=== PATIENT | male | born 1960 | race Caucasian/White ===

== ENCOUNTER 2022-12-18 10:20 | Outpatient (CLI) | payer OTHER, SELFPAY | END 2022-12-18 10:21 | disposition home or self-care (01) | PROVIDERS: PCP Family Medicine; Visit Provider Family Medicine | DX: R00.2 Palpitations (principal) | CPT/HCPCS: 80048; 84443 ==

== ENCOUNTER 2024-03-03 08:42 | Outpatient (CLI) | payer BC, SELFPAY | END 2024-03-03 08:43 | disposition home or self-care (01) | PROVIDERS: PCP Family Medicine; Visit Provider Family Medicine | DX: I10 Essential (primary) hypertension (principal); Z12.5 Encounter for screening for malignant neoplasm of prostate | CPT/HCPCS: 80048; G0103 ==

== ENCOUNTER 2024-09-25 13:31 | Outpatient (CLI) | payer BC, SELFPAY ==
[2024-09-25 13:59] LABS: Creatinine* 0.8 mg/dL (0.5-1.5); Estimated Glomerular Filt Rate 99 ml/min
--- NOTE | 2024-09-25 14:00 | CRLHL7_ITS ---
For Patients: As a result of the Century Cures Act, medical imaging exams and procedure reports are released immediately into your electronic medical record. You may view this report before your referring provider. If you have questions, please contact your health care provider. INDICATION: Abnormal chest x-ray with pleural thickening. TECHNIQUE: CT chest with 75 cc Omnipaque 370 IV contrast. Multiplanar reformats with axial MIP reconstructions. COMPARISON: Chest x-ray 03/03/2024. FINDINGS: Lungs and pleura/mediastinum: Spiculated left hilar mass measures up to 4.3 x 3.3 x 4.0 cm (series 2, image 55; series 4, image 51) with likely extension within the pulmonary veins on the left and encasement of the left upper lobe and proximal left lower lobe bronchial tree. Prominent mediastinal lymph nodes with largest in the lower paratracheal region measuring up to 1.1 cm in short axis (series 2 image 45). There is centrilobular emphysema. Biapical pleural parenchymal scarring is evident. No definite pulmonary nodule. No pleural effusion or pneumothorax. Heart and vasculature: No cardiomegaly or pericardial effusion. There are atherosclerotic calcifications of the aorta. No thoracic aortic aneurysm. Main pulmonary artery is normal in caliber. No obvious pulmonary embolism on this nondedicated exam. Chest wall: No chest wall mass or fluid collection. Upper abdomen: No acute abnormality. Bones: No acute abnormality. IMPRESSION: 1. Spiculated left hilar mass measuring up to 4.3 cm highly concerning for malignancy with pulmonary venous extension and encasement of portions of the bronchial tree within the left upper and lower lobes. Further characterization with histopathologic analysis and PET/CT recommended. 2. Mediastinal lymphadenopathy. 3. Centrilobular pulmonary emphysema. Please note that all CT scans at this facility use dose modulation, iterative reconstruction, and/or weight-based dosing when appropriate to reduce radiation dose to as low as reasonably achievable. Dictated by Galileo Spangler MD @ 09/26/2024 12:35:59 PM (Electronically Signed)
== END 2024-09-25 13:32 | disposition home or self-care (01) ==
LOC: CT 13:32
PROVIDERS: PCP Family Medicine; Visit Provider Family Medicine
DX: J92.9 Pleural plaque without asbestos (principal); R91.8 Other nonspecific abnormal finding of lung field; R59.1 Generalized enlarged lymph nodes; J43.2 Centrilobular emphysema
CPT/HCPCS: 36415; 71260; 82565; Q9967

== ENCOUNTER 2024-10-15 14:15 | Outpatient (CLI) | payer BC, SELFPAY | END 2024-10-15 14:16 | disposition home or self-care (01) | LOC: RAD 14:16 | PROVIDERS: PCP Family Medicine; Visit Provider Family Medicine | DX: R91.8 Other nonspecific abnormal finding of lung field (principal); C34.92 Malignant neoplasm of unspecified part of left bronchus or lung; C79.51 Secondary malignant neoplasm of bone | CPT/HCPCS: 78815; A9552 ==

== ENCOUNTER 2024-10-28 02:26 | Inpatient (IN) | payer BC, SELFPAY ==
[2024-10-28] VITALS (27 sets, daily range): BP systolic 100–181; BP diastolic 62–117; PULSE 70–92; RESP 13–51; TEMP 36.4–36.8; O2SAT 94–100; BMI 22.6; BMI 17.4
--- OUTSIDE RECORDS SUMMARY | 2024-10-28 02:28 | XMS_ITS | Clinical Summary ---
Author Organization [facility] Address [address] [place] [address] Care Team Providers Care Science Intern Name Role Phone Unavailable Primary Care Provider Unavailabl e Encounters Date Type Department Care Team Description 10/26/2024 Telephone [facility] [place] [address] [place] [phone] Joe Stoddard MD Referral 10/23/2024 Telephone [facility] Cancer [facility] [address] [place] [address] [facility] Cancer Referral (Mass on left lung, please assist with plan for tissue diagnosis of new lung CA with PET showing some metastatic intra thoracic disease. Long time smoker.) 10/20/2024 Transcribe Orders [facility] [address] [place] [address] Kurt Lobo MD 10/15/2024 Orders Only [facility] Scanner 1 scan: (1-Ord) [facility], PET SKULL TO MID THIGH, 10/15/2024 09/30/2024 Transcribe Orders [facility] [place] [phone] Kurt Lobo MD from Last 3 Months Social History Tobacco Use Types Packs/Day Years Used Date Smoking Tobacco: Never Assessed Sex and Gender Information Value Date Recorded Sex Assigned at Not on file Legal Sex Male 8:25 AM [employer] Gender Identity Not on file Sexual Orientation Not on file Plan of Treatment Health Maintenance Due Date Last Done Comments Tdap 1972 Depression screening for age 12+ 1973 HIV for age 15-65 1976 BMI (ht and wt on same day) for age 18+ 1979 Hepatitis C screening for age 18-79 1979 Tetanus booster 1981 Colonoscopy through age 75 2006 Lipids for age 45-75 2006 Pneumococcal series for age 50+ (1 of 1 - PCV) 012 Zoster (shingles) series for age 50+ (1 of 2) 08/30/19 12 COVID-19 vaccine series ( - 2023- season) 4 Influenza Vaccine (#1) 2024 RSV vaccine for adults or pr egnancy (1 - 1-dose 75+ series) 2036 Procedures Procedure Name Priority Date/Time Associated Diagnosis Comments SCAN-CT INTERPRETATION 10/15/2024 12:00 AM INDUSTRIAL SEWER from Last 3 Months Results * SCAN-CT INTERPRETATION (10/15/2024 12:00 AM INDUSTRIAL SEWER) Anatomical Region Laterality Modality Other us Scanner OTHER Final Result from Last 3 Months Insurance [address] [place] [id number] [place] [id number]
--- NOTE | 2024-10-28 02:36 | PC.NURSE ---
at registration staff felt pt was having a stoke per slowed speech. Able to follow direction including bilateral strong equal hand grasps but note some very slurred speech. Did call an overhead Stroke CODE. Noted per family he was recently dx with lung CA. Pts family and pt admit to ETOH-pt smells of ETOH. Last well time was 1800 at meal time.
--- NOTE | 2024-10-28 02:39 | CRLHL7_ITS ---
For Patients: As a result of the Century Cures Act, medical imaging exams and procedure reports are released immediately into your electronic medical record. You may view this report before your referring provider. If you have questions, please contact your health care provider. DATE: 10/28/2024 CLINICAL HISTORY: Patient with focal neurological deficits. TECHNIQUE: Standard helical CT image acquisition of the neck up to the skull base after bolus intravenous contrast enhancement. 2D and 3D MIP images for post-processing were performed and interpreted on an independent workstation and 3D images were permanently archived. COMPARISON: CT same day. FINDINGS: There is a critical (greater than 90%) stenosis at the origin of the left common carotid artery. The origins of the rest of the great vessels from the aortic arch are patent. The origin of the right vertebral artery demonstrates moderate narrowing. The origin of the left vertebral artery is patent. The common carotid arteries are patent. There is a moderate (67%) stenosis at the origin of the right internal carotid artery by NASCET criteria. This is caused by calcified plaque with a 1.5mm residual lumen. There is plaque without stenosis at the origin of the left internal carotid artery by NASCET criteria. The rest of the cervical segments of the internal carotid arteries are patent up to the skull base. The vertebral arteries are codominant. The cervical segments of the vertebral arteries are patent up to the skull base. The visualized lung apices are unremarkable. The thyroid gland is unremarkable. The soft tissues of the neck are unremarkable. There are degenerative changes in the cervical spine. IMPRESSION: 1. Critical (greater than 90%) stenosis at the origin of the left common carotid artery. 2. Moderate (67%) stenosis at the origin of the right internal carotid artery by NASCET criteria. This is caused by calcified plaque with a 1.5mm residual lumen. 3. Moderate right vertebral artery origin stenosis. Please note that all CT scans at this facility use dose modulation, iterative reconstruction, and/or weight-based dosing when appropriate to reduce radiation dose to as low as reasonably achievable. Dictated by Maya Arthur MD @ 10/28/2024 12:27:14 PM (Electronically Signed)
--- NOTE | 2024-10-28 02:39 | CRLHL7_ITS ---
For Patients: As a result of the Century Cures Act, medical imaging exams and procedure reports are released immediately into your electronic medical record. You may view this report before your referring provider. If you have questions, please contact your health care provider. DATE: 10/28/2024 CLINICAL HISTORY: Patient with focal neurological deficits. TECHNIQUE: Standard helical CT image acquisition through the intracranial circulation following intravenous administration of contrast material with bolus tracking. 2D and 3D MIP images for post-processing were performed and interpreted on an independent workstation and 3D images were permanently archived. COMPARISON: CT same day. FINDINGS: There is no cerebral aneurysm or large vessel occlusion. The right internal carotid artery is normal. The right middle cerebral artery and its branches are normal. The right anterior cerebral artery and its branches are normal. The left internal carotid artery is normal. The left middle cerebral artery and its branches are normal. The left anterior cerebral artery and its branches are normal. The anterior communicating artery is well visualized and appears normal. The right vertebral artery and PICA are normal. The left vertebral artery and PICA are normal. The vertebral arteries are codominant. The basilar artery is patent and appears normal. The right posterior cerebral artery is normal. The left posterior cerebral artery is normal. The visualized venous structures are patent. IMPRESSION: Patent proximal intracranial vasculature without intracranial aneurysms. Please note that all CT scans at this facility use dose modulation, iterative reconstruction, and/or weight-based dosing when appropriate to reduce radiation dose to as low as reasonably achievable. Dictated by Maya Arthur MD @ 10/28/2024 12:29:50 PM (Electronically Signed)
--- NOTE | 2024-10-28 02:42 | ED.NEUROSD ---
HPI - Neuro Symptoms/Deficit General Time Seen by Provider: 02:42 Date Seen: 10/28/24 Chief Complaint: Neuro Symptoms/Altered Deficit Stated Complaint: Right arm numb, speech trouble Time Seen by Provider: 10/28/24 02:39 Source: patient, family, RN notes reviewed and old records reviewed Mode of arrival: ambulatory Limitations: no limitations History of Present Illness HPI Narrative: 64-year-old male with history of COPD and recently diagnosed lung cancer comes in with word-finding difficulty and right-sided weakness. Patient reports he was coming down the bathroom notices right-sided more, woke up his spouse who noted that his speech was not normal and so came to the emergency department. No chest pain, no headache, no fall or head injury. Patient does not take blood thinners. Recent diagnosis of lung cancer, they report they did have a PET scan. no recent illness, no breathing or swallowing difficulty. Related Data Home Medications ?Medication ?Instructions ?Recorded ?Confirmed multivitamin 1 tab PO QAM 03/03/24 09/01/24 aspirin 325 mg tablet 325 mg PO QDAY 05/06/24 09/01/24 fyisems-zafclpovu-lggo 333 mg-133 tab PO DAILY 09/01/24 09/01/24 mg-5 mg tablet Previous Rx's ?Medication ?Instructions ?Recorded metoprolol succinate 25 mg 25 mg PO QDAY #90 tabs 03/03/24 tablet,extended release 24 hr sildenafil 100 mg tablet 100 mg PO QDAY PRN sexual activity 03/03/24 #6 tabs tamsulosin 0.4 mg capsule 0.4 mg PO QDAY #90 caps 03/03/24 celecoxib 200 mg capsule 200 mg PO BID #60 caps 09/01/24 methocarbamol 500 mg tablet 500 mg PO QID #40 tabs 09/01/24 Allergies Allergy/AdvReac Type Severity Reaction Status Date / Time penicillin V Allergy Intermediate Vomiting Verified 09/25/24 14:34 [facility] Medical History Tobacco use ?Z72.0 - Tobacco use (ICD-10) Hypertension ?I10 - Essential (primary) hypertension (ICD-10) COPD (chronic obstructive pulmonary disease) ?J44.9 - Chronic obstructive pulmonary disease, unspecified (ICD-10) BPH (benign prostatic hyperplasia) ?N40.0 - Benign prostatic hyperplasia without lower urinary tract symptoms (ICD-10) Arrhythmia ?I49.9 - Cardiac arrhythmia, unspecified (ICD-10) Adenomatous colon polyp ?D12.6 - Benign neoplasm of colon, unspecified (ICD-10) Erectile dysfunction ?N52.9 - Male erectile dysfunction, unspecified (ICD-10) Chronic urticaria ?L50.8 - Other urticaria (ICD-10) Diarrhea ?R19.7 - Diarrhea, unspecified (ICD-10) COVID-19 ?U07.1 - COVID-19 (ICD-10) History of depression ?Z86.59 - Personal history of other mental and behavioral disorders (ICD-10) Alopecia areata ?L63.9 - Alopecia areata, unspecified (ICD-10) Surgical History History of ear surgery ?Z98.890 - Other specified postprocedural states (ICD-10) Status post bilateral inguinal hernia repair ?Z98.890 - Other specified postprocedural states (ICD-10) ?Z87.19 - Personal history of other diseases of the digestive system (ICD-10) Status post vasectomy ?Z98.52 - Vasectomy status (ICD-10) Social History Narrative: 3 beers/day Smoking Status: Current every day smoker How often do you have a drink containing alcohol: never AUDIT-C Alcohol total score: 0 Non-prescribed substance use: denies use Exam Narrative: Exam Narrative: General: Well-developed and well-nourished, no acute distress Head: Atraumatic and normocephalic Eyes: Pupils are equal reactive, extraocular motions intact, conjunctiva clear ENT: External nose and ears are normal, posterior pharynx without erythema or exudate Neck: No midline cervical tenderness, full spontaneous range of motion the neck, trachea midline, no adenopathy Heart: Regular rate and rhythm no murmurs or thrills Lungs: Clear to auscultation bilaterally without wheezes or crackles Abdomen: Soft, nontender, nondistended with active bowel sounds Musculoskeletal: No tenderness, deformity, or edema Neurologic: Awake, alert, and oriented x3, slight drift of the right leg, moderate word-finding difficulty, NIHSS 3 Psych: Mood and affect are appropriate Skin: No rashes Const: Vital Signs, click to edit/add: Vital Signs - 24 hr 10/28/24 02:30 10/28/24 02:37 10/28/24 02:37 Temperature 97.8 F Pulse Rate Pulse Rate [Pulse Oximeter] 80 Respiratory Rate 18 16 Blood Pressure Blood Pressure [Ri ght Upper Arm] 155/83 H Pulse Oximetry 100 98 Oxygen Delivery Me thod Room Air Room Air 10/28/24 02:38 10/28/24 02:48 10/28/24 02:53 Temperature Pulse Rate Pulse Rate [Pulse Oximeter] Respiratory Rate 24 Blood Pressure 167/115 H Blood Pressure [Ri ght Upper Arm] Pulse Oximetry 99 Oxygen Delivery Me thod 10/28/24 02:53 10/28/24 02:53 10/28/24 03:00 Temperature 98 F Pulse Rate 78 Pulse Rate [Pulse Oximeter] 76 Respiratory Rate 16 13 Blood Pressure Blood Pressure [Ri ght Upper Arm] 155/83 H Pulse Oximetry 99 99 99 Oxygen Delivery Me thod Room Air Room Air 10/28/24 03:02 10/28/24 03:12 10/28/24 03:15 Temperature Pulse Rate 76 78 86 Pulse Rate [Pulse Oximeter] Respiratory Rate 15 15 20 Blood Pressure 167/98 H 176/92 H Blood Pressure [Ri ght Upper Arm] Pulse Oximetry 99 99 96 Oxygen Delivery Me thod 10/28/24 03:22 10/28/24 03:30 10/28/24 03:31 Temperature Pulse Rate 74 72 Pulse Rate [Pulse Oximeter] Respiratory Rate 16 19 15 Blood Pressure 160/95 H 153/89 H Blood Pressure [Ri ght Upper Arm] Pulse Oximetry 95 95 Oxygen Delivery Me thod 10/28/24 03:42 10/28/24 03:45 Temperature Pulse Rate 74 Pulse Rate [Pulse Oximeter] Respiratory Rate 19 17 Blood Pressure 160/102 H Blood Pressure [Ri ght Upper Arm] Pulse Oximetry 94 Oxygen Delivery Me thod Course Course ED Course: reviewed PET scan from October 15, no abnormal findings in the head and neck, does have left hilar mass extending the left mediastinum with left rib and iliac wing metastasis patient seen and examined on arrival, presents today with right arm and leg weakness and speech difficulty starting around 1:45 a.m. when he woke up, last normal around dinner time last night (7pm). Patient notes that his arm weakness seems improved. On exam here, he does have an expressive aphasia with moderate word-finding difficulty, sometimes straining to make himself understood. Slight right leg drift as well. Stroke code initiated, patient to CT scan. Care was discussed with stroke neurology Dr. Saldana. Due to time of onset of symptoms, patient is not a lytic candidate, would be a candidate for thrombectomy if LVO. Reevaluation(s) Time of Reevaluation #1: 03:07 Reevaluation #1: Care discussed with Dr. Saldana, stroke neurology, who recommends full strength aspirin now, MRI in the morning. Will discuss with admitting. EKG independently interpreted by me performed at 3:10 a.m. demonstrates sinus rhythm rate 84, no acute ST elevations or depressions, normal intervals, normal axis, QTC 441, [place] 148. No prior for comparison. Time of Reevaluation #2: 03:39 Reevaluation #2: Labs independently interpreted by me with normal CBC, mild hyponatremia, alcohol 0.02. Reviewed radiology interpretation CT and CTA, no evidence for mass, acute hemorrhage, there is severe atherosclerosis of the left common carotid but immediate reconstitution, similar to prior. Time of Reevaluation #3: 04:03 Reevaluation #3: Care discussed with Dr. Russo, hospitalist who accepts patient for admission Vital Signs Vital signs: Initial Vital Signs Temperature 97.8 F 10/28/24 02:30 Temperature Source Temporal Artery Scan 10/28/24 02:30 Respiratory Rate 18 10/28/24 02:30 Blood Pressure 155/83 H 10/28/24 02:30 Blood Pressure Mean 107 H 10/28/24 02:30 Blood Pressure Position Supine 10/28/24 02:30 Pulse Oximetry 100 10/28/24 02:30 Oxygen Delivery Method Room Air 10/28/24 02:30 Vital Signs Temperature 97.8 F 10/28/24 02:30 Respiratory Rate 18 10/28/24 02:30 Blood Pressure 155/83 H 10/28/24 02:30 Pulse Oximetry 100 10/28/24 02:30 Oxygen Delivery Method Room Air 10/28/24 02:30 Temperature 98 F 10/28/24 02:53 Pulse Rate 74 10/28/24 03:45 Respiratory Rate 17 10/28/24 03:45 Blood Pressure 160/102 H 10/28/24 03:42 Pulse Oximetry 94 10/28/24 03:45 Oxygen Delivery Method Room Air 10/28/24 02:53 Medications Administered Medications: Generic Name Dose Route Start Last Admin Trade Name Davidq PRN Reason Stop Dose Admin Aspirin 324 mg 10/28/24 03:09 10/28/24 03:17 Aspirin 81 Mg Tab.Chew PO 10/28/24 03:10 324 mg ONCE ONE Administration MDM - Neuro Symptoms/Deficit Lab Data Labs: Lab Results 10/28/24 Range/Units 02:35 WBC 5.74 (4.50-11.00) K/uL RBC 4.18 L (4.30-5.90) m/uL Hgb 13.4 L (13.5-17.5) gm/dL Hct 38.7 (37.0-53.0) % MCV 93 (80-100) fL MCH 32 (26-34) pg MCHC 35 (32-36) gm/dL RDW Coeff of Beckie 13.2 (11.5-15.5) % Plt Count 253 (140-440) K/uL Neut % (Auto) 48.4 (42.0-72.0) % Lymph % (Auto) 37.6 (20-44) % Davison % (Auto) 10.5 (0.0-11.0) % Eos % (Auto) 3.0 (0.0-7.0) % Baso % (Auto) 0.3 (0.0-3.0) % Neut # (Auto) 2.78 (1.7-7.0) K/uL Lymph # (Auto) 2.16 (0.90-2.90) K/uL Davison # (Auto) 0.60 (0.00-0.90) K/UL Eos # (Auto) 0.17 (0.00-0.50) K/uL Baso # (Auto) 0.02 (0.00-0.30) K/uL Abs Immat Gran (auto) 0.01 (0.00-0.30) K/uL Imm/Tot Granulo (auto) 0.2 % INR 0.86 L (0.91-1.10) APTT 27 (23-33) Seconds Sodium 129 L (135-149) mmol/L Potassium 4.4 (3.6-5.1) mmol/L Chloride 95 L (96-114) mmol/L Carbon Dioxide 26 (20-32) mmol/L Anion Gap 8 (7-15) mEq/L BUN 14 (7-30) mg/dL Creatinine 0.8 (0.5-1.5) mg/dL Estimated Creat Clear 67.91 Estimated GFR 99 ml/min Glucose 90 (60-115) mg/dL Calcium 9.3 (8.4-10.6) mg/dL Ethyl Alcohol 0.02 (0.01-0.03) % Discharge Plan Discharge Clinical Impression: Aphasia, Acute right-sided muscle weakness, Lung mass Prescriptions: No Action multivitamin Tablet 1 tab PO QAM sildenafil 100 mg tablet 100 mg PO QDAY PRN (Reason: sexual activity) Qty: 6 5RF Rx Instructions: administer 30 minutes to 4 hours before activity metoprolol succinate 25 mg tablet extended release 24 hr 25 mg PO QDAY Qty: 90 3RF tamsulosin 0.4 mg capsule 0.4 mg PO QDAY Qty: 90 3RF kabmbft-apglgiibe-rsyg 333-133-5 mg tablet PO DAILY aspirin 325 mg tablet 325 mg PO QDAY celecoxib 200 mg capsule 200 mg PO BID Qty: 60 2RF methocarbamol 500 mg tablet 500 mg PO QID Qty: 40 3RF Follow Up/Referrals: Kurt Lobo MD [Primary Care Provider] -
[2024-10-28 02:47] LABS: Basophils Absolute Auto 0.02 K/uL (0.00-0.30); Basophils Percent Auto 0.3 % (0.0-3.0); Eosinophils Absolute Auto 0.17 K/uL (0.00-0.50); Hematocrit 38.7 % (37.0-53.0); Hemoglobin* 13.4 gm/dL (13.5-17.5); Immature Granulocytes Abs Auto 0.01 K/uL (0.00-0.30); Immature Granulocytes Pct Auto 0.2 %; Lymphocytes Absolute Auto 2.16 K/uL (0.90-2.90); Lymphocytes Percent Auto 37.6 % (20-44); Mean Corpuscular HGB Conc 35 gm/dL (32-36); Mean Corpuscular Hemoglobin 32 pg (26-34); Mean Corpuscular Volume 93 fL (80-100); Monocytes Percent Auto 10.5 % (0.0-11.0); Neutrophils Absolute Auto 2.78 K/uL (1.7-7.0); Neutrophils Percent Auto 48.4 % (42.0-72.0); Platelet Count* 253 K/uL (140-440); RDW Coefficient of Variation % 13.2 % (11.5-15.5); Red Blood Count 4.18 m/uL (4.30-5.90); White Blood Count* 5.74 K/uL (4.50-11.00)
[2024-10-28 02:48] LABS: Slide Review Reflex No
[2024-10-28 02:58] LABS: Chloride* 95 mmol/L (96-114); Potassium* 4.4 mmol/L (3.6-5.1); Sodium* 129 mmol/L (135-149)
[2024-10-28 03:00] LABS: INR 0.86 (0.91-1.10); Prothrombin Time 12.5 Seconds
[2024-10-28 03:01] LABS: Anion Gap 8 mEq/L (7-15); Blood Urea Nitrogen* 14 mg/dL (7-30); Carbon Dioxide* 26 mmol/L (20-32); Creatinine* 0.8 mg/dL (0.5-1.5); Est. Creatinine Clearance* 67.91; Estimated Glomerular Filt Rate 99 ml/min; Partial Thromboplastin Time* 27 Seconds (23-33)
[2024-10-28 03:02] LABS: Calcium* 9.3 mg/dL (8.4-10.6); Glucose* 90 mg/dL (60-115)
[2024-10-28 03:11] LABS: Ethanol* 0.02 % (0.01-0.03)
[2024-10-28] MEDS: ASPIRIN 81 MG TAB.CHEW 324 MG PO (03:17)
--- NOTE | 2024-10-28 07:08 | CRLHL7_ITS ---
For Patients: As a result of the Century Cures Act, medical imaging exams and procedure reports are released immediately into your electronic medical record. You may view this report before your referring provider. If you have questions, please contact your health care provider. INDICATION: Right-sided weakness, aphasia. TECHNIQUE: Multiplanar, multisequential MR examination of the brain was performed without the use of intravenous contrast. COMPARISON: CT head performed earlier same day. MR brain 11/06/2011. FINDINGS: There are scattered foci of restricted diffusion involving the cortical montemayor matter of the left temporal and parietal lobes (5: 36-39). Questionable minimal associated vasogenic edema (4:21) involving the left temporal lobe. This finding had no correlate on the prior CT imaging. No foci of susceptibility artifact. No intracranial hemorrhage, abnormal extra-axial fluid collection or midline shift. The ventricles and cerebral sulci are prominent in caliber, compatible with mild generalized parenchymal volume loss. There are scattered foci of T2/FLAIR hyperintensity in the supratentorial white matter as well as pontine belly, compatible with chronic microvascular ischemic changes. There is no hydrocephalus. The basal cisterns remain patent. The major intracranial signal flow voids are preserved, consistent with their patency. Mild mucosal thickening of the paranasal sinuses. The mastoid air cells are clear. The pituitary gland appears unremarkable. The cerebellar tonsils appear in normal position. IMPRESSION: 1. Scattered foci of restricted diffusion involving the cortical montemayor matter of the left temporal and parietal lobes, which can be seen with recent subacute embolic infarct. A nonspecific encephalitis or postictal changes may have a similar appearance and should be clinically excluded. 2. Mild generalized parenchymal volume loss with chronic microvascular ischemic changes. Dictated by Nils Horner MD @ 10/28/2024 1:56:19 PM (Electronically Signed)
--- NOTE | 2024-10-28 07:32 | W.PM.TELEH&P ---
Telehealth- H&P: HPI History of Present Illness Date Seen: 10/28/24 Chief complaint: Right arm numb, speech trouble Narrative: Damon Hameed is seen as an Interactive Telehealth visit. Damon Hameed is a This is a 64-year-old male who presents to hospital with a upper extremity weakness. Patient was recently diagnosed with lung cancer and is planning to follow-up at [facility] for workup. He has a extensive history of smoking. He has been losing weight over the past few years. During a incidental workup for degenerative disc disease, imaging found a large mass on his left lung. Today he was in his shop, working in the garage when he fell asleep at the shop. When he woke up he was noted to have weakness in his arms. He was having weakness in his upper extremities. He was unable to hold things. He was having difficulty ambulating. His noted that he was having difficulty with speech and he was falling and will be moved to the side. He was brought to the emergency room. In the emergency room he underwent CT imaging of the head and neck as well as a CT angio which did not show any intracranial hemorrhage or large vessel occlusion.. Neurology did see the patient and recommended that the patient undergo admission to the hospital, MRI is continue on aspirin 325. Review of Systems Status of ROS: Reports: 10 or more systems reviewed and unremarkable except as noted in History and below Const: Denies: fever Eyes: Denies: change in vision Cardio: Denies: chest pain or shortness of breath with exertion Resp: Denies: shortness of breath GI: Denies: abdominal pain, nausea or vomiting Musculo: Reports: muscle weakness Neuro: Reports: weakness in extremities and difficulty communicating thoughts; Denies: headache, lack of coordination, dizziness, confusion, slurred speech, seizure-like activity or involuntary movements [facility] Medical History Tobacco use ?Z72.0 - Tobacco use (ICD-10) Hypertension ?I10 - Essential (primary) hypertension (ICD-10) COPD (chronic obstructive pulmonary disease) ?J44.9 - Chronic obstructive pulmonary disease, unspecified (ICD-10) BPH (benign prostatic hyperplasia) ?N40.0 - Benign prostatic hyperplasia without lower urinary tract symptoms (ICD-10) Arrhythmia ?I49.9 - Cardiac arrhythmia, unspecified (ICD-10) Adenomatous colon polyp ?D12.6 - Benign neoplasm of colon, unspecified (ICD-10) Erectile dysfunction ?N52.9 - Male erectile dysfunction, unspecified (ICD-10) Chronic urticaria ?L50.8 - Other urticaria (ICD-10) Diarrhea ?R19.7 - Diarrhea, unspecified (ICD-10) COVID-19 ?U07.1 - COVID-19 (ICD-10) History of depression ?Z86.59 - Personal history of other mental and behavioral disorders (ICD-10) Alopecia areata ?L63.9 - Alopecia areata, unspecified (ICD-10) Surgical History History of ear surgery ?Z98.890 - Other specified postprocedural states (ICD-10) Status post bilateral inguinal hernia repair ?Z98.890 - Other specified postprocedural states (ICD-10) ?Z87.19 - Personal history of other diseases of the digestive system (ICD-10) Status post vasectomy ?Z98.52 - Vasectomy status (ICD-10) Social History Narrative: 3 beers/day What is your current living situation?: I presently have a place to live Problems where you live: no known problems Problems where you live details: no known problems In the past 12 months, utilities in danger of being shut off: no In past 12 months, lack of transportation kept you from medical appts, meetings, work, or getting things needed for daily living: no In the past 12 mos, have been you worried that your food would run out before you had money to buy more?: never true In the past 12 mos, the food you bought just didn't last and you didn't have money to buy more?: never true Highest level of school completed/degree received: some college, no degree Smoking Status: Current every day smoker What tobacco products do you use: cigarettes Smoking packs per day: 1 Smoking cigarettes per day: 20.0 Second hand tobacco smoke exposure: No How often do you have a drink containing alcohol: 4 or more times a week Alcohol type: beer How many standard drinks containing alcohol do you have on a typical day: 3 or 4 How often do you have six or more drinks on one occasion: Never AUDIT-C Alcohol total score: 5 Non-prescribed substance use: marijuana (any form) Caffeine: Yes How often does anyone, including family, friends and others, physically hurt you: never How often does anyone, including family, friends and others, insult or talk down to you: never How often does anyone, including family, friends and others, threaten you with harm: never How often does anyone, including family, friends and others, scream or curse at you: never service: No Meds Home Medications and Allergies Home Medications ?Medication ?Instructions ?Recorded ?Confirmed ?Type multivitamin 1 tab PO QAM 03/03/24 09/01/24 History aspirin 325 mg tablet 325 mg PO QDAY 05/06/24 09/01/24 History ohyjlih-vmlyuuzsu-eugh 333 mg-133 tab PO DAILY 09/01/24 09/01/24 History mg-5 mg tablet Allergies Allergy/AdvReac Type Severity Reaction Status Date / Time penicillin V Allergy Intermediate Vomiting Verified 09/25/24 14:34 Exam Narrative Exam Narrative: Physical Exam GENERAL: ?vital signs reviewed, well developed and nourished, in no distress HEENT: pupils are equal round and reactive to light, extraocular movements are grossly within normal limits and oral mucosa is moist. NECK: Supple without lymphadenopathy or thyromegaly according to nursing staff examination observation HEART: Regular rate and rhythm without any rubs, murmurs, or gallops. LUNGS: Clear to auscultation bilaterally with good air movement throughout EXTREMITIES: Strength and sensation is observed to be grossly within normal limits in the upper and lower extremities.? No focal strength deficit is observed. SKIN:? Observed warm and dry with color normal neuro: neuro exam completed. CN appeared normal. No focal deficit in upper and lower extremities. Did have some mild aphasia Const Vital Signs, click to edit/add: Vital Signs - 24 hr 10/28/24 02:30 10/28/24 02:37 10/28/24 02:37 Temperature 97.8 F Pulse Rate Pulse Rate [Pulse Oximeter] 80 Respiratory Rate 18 16 Blood Pressure Blood Pressure [Left Arm] Blood Pressure [Right Upper Arm] 155/83 H Pulse Oximetry 100 98 Oxygen Delivery Method Room Air Room Air 10/28/24 02:38 10/28/24 02:48 10/28/24 02:53 Temperature Pulse Rate Pulse Rate [Pulse Oximeter] Respiratory Rate 24 Blood Pressure 167/115 H Blood Pressure [Left Arm] Blood Pressure [Right Upper Arm] Pulse Oximetry 99 Oxygen Delivery Method 10/28/24 02:53 10/28/24 02:53 10/28/24 03:00 Temperature 98 F Pulse Rate 78 Pulse Rate [Pulse Oximeter] 76 Respiratory Rate 16 13 Blood Pressure Blood Pressure [Left Arm] Blood Pressure [Right Upper Arm] 155/83 H Pulse Oximetry 99 99 99 Oxygen Delivery Method Room Air Room Air 10/28/24 03:02 10/28/24 03:12 10/28/24 03:15 Temperature Pulse Rate 76 78 86 Pulse Rate [Pulse Oximeter] Respiratory Rate 15 15 20 Blood Pressure 167/98 H 176/92 H Blood Pressure [Left Arm] Blood Pressure [Right Upper Arm] Pulse Oximetry 99 99 96 Oxygen Delivery Method 10/28/24 03:22 10/28/24 03:30 10/28/24 03:31 Temperature Pulse Rate 74 72 Pulse Rate [Pulse Oximeter] Respiratory Rate 16 19 15 Blood Pressure 160/95 H 153/89 H Blood Pressure [Left Arm] Blood Pressure [Right Upper Arm] Pulse Oximetry 95 95 Oxygen Delivery Method 10/28/24 03:42 10/28/24 03:45 10/28/24 03:52 Temperature Pulse Rate 74 70 Pulse Rate [Pulse Oximeter] Respiratory Rate 19 17 16 Blood Pressure 160/102 H 164/93 H Blood Pressure [Left Arm] Blood Pressure [Right Upper Arm] Pulse Oximetry 94 97 Oxygen Delivery Method 10/28/24 04:00 10/28/24 04:02 10/28/24 04:11 Temperature Pulse Rate 74 70 72 Pulse Rate [Pulse Oximeter] Respiratory Rate 51 H 14 16 Blood Pressure 158/94 H 149/88 H Blood Pressure [Left Arm] Blood Pressure [Right Upper Arm] Pulse Oximetry 95 96 96 Oxygen Delivery Method 10/28/24 04:55 10/28/24 05:00 10/28/24 05:00 Temperature 97.5 F L 97.5 F L Pulse Rate 74 Pulse Rate [Pulse Oximeter] 74 74 Respiratory Rate 16 16 Blood Pressure 181/117 H Blood Pressure [Left Arm] 181/117 H 181/117 H Blood Pressure [Right Upper Arm] Pulse Oximetry 96 96 96 Oxygen Delivery Method Room Air Room Air Room Air 10/28/24 06:07 Temperature Pulse Rate Pulse Rate [Pulse Oximeter] Respiratory Rate 16 Blood Pressure Blood Pressure [Left Arm] Blood Pressure [Right Upper Arm] Pulse Oximetry 96 Oxygen Delivery Method Room Air Hospitalist - H&P: Result Labs Labs: Short CBC 10/28/24 Range/Units 02:35 WBC 5.74 (4.50-11.00) K/uL Hgb 13.4 L (13.5-17.5) gm/dL Hct 38.7 (37.0-53.0) % Plt Count 253 (140-440) K/uL BMP 10/28/24 02:35 Sodium 129 L Potassium 4.4 Chloride 95 L Carbon Dioxide 26 BUN 14 Creatinine 0.8 Glucose 90 Calcium 9.3 Assessment and Plan Assessment and plan (1) Lung mass: Status: Acute (2) Acute right-sided muscle weakness: Status: Acute (3) Aphasia: Status: Acute (4) Mass of left lung: Problem comment: By CT 09/2024, with hilar adenopathy. Pulmonary referral and PET scan pending Status: Acute (5) Pleural thickening: Problem comment: Found by shoulder x-ray, 08/2024. Needs CT scan Status: Acute (6) Cervical spinal stenosis: Problem comment: DDD C3-4 and C5-6 Status: Acute Plan Assessment and plan Probable stroke: This patient has developed upper extremity weakness and aphasia. Although much of his weakness is resolved. His aphasia has continued. MRI of the brain has been ordered. Stroke neurology is recommending MRI of the brain. I will continue the patient on telemetry. I will continue aspirin 325 tablet as was recommended by neurology. I have ordered an echocardiogram. Patient's blood pressures are elevated which I will allow to allow for permissive hypertension. Another possibility is a metastatic spread of his newly diagnosed lung cancer. Again, follow-up of the MRI will be crucial. Accelerated hypertension allowing permissive hypertension in the setting of possible stroke. No evidence of intracranial hemorrhage. Recent diagnosis of left lung mass plan for workup and continued treatment at [facility]. He was just diagnosed 2 months ago. Tobacco abuse disorder: Patient continues to smoke but is planning to quit. DVT prophylaxis Lovenox Telehealth Visit: Todays History and Physical is via interactive telehealth by Dr Zach Russo MD The Patient is located [facility]: Physician is located at [facility]. Nursing staff assisted in the patient's exam. The visit being done today meets criteria for a telehealth visit and the patient or patient's parent/guardian is aware the visit is a telehealth visit. Camera Start time 530 Camera End time 600 Telehealth: Statement Statement Telehealth Visit: Today's History and Physical is provided via interactive telehealth by Zach Russo MD.? Patient is located at [facility].? Provider is located at [facility].? Nursing staff assisted with the patient's exam. The visit being done today meets criteria for a telehealth visit and the patient or patient?s parent/guardian is aware the visit is a telehealth visit.
--- NOTE | 2024-10-28 09:18 | NUTR.NU ---
RDn with nutrition screen related to positive MST score and underweight BMI. Patient admitted for suspected stroke and right-sided muscle weakness. Medical history significant for new mass in lung found by CT 09/2024. Current weight 107lb 14.4oz; height 5ft 6in; BMI 17.4 kg/m2. Per weight history, patient's weight has remained stable without significant changes recently. Patient's BMI has remained underweight or close to it for years. Current diet order is Regular. No meal intakes yet to assess. Speech Therapist consulted for swallow and speech evaluation today. No appropriate to visit today. No nutrition interventions at this time with stable weight. RDN will continue to monitor and follow-up prn.
--- NOTE | 2024-10-28 09:33 | PM.IMPN1 ---
Progress Note: A&P Assessment and plan (1) Acute right-sided muscle weakness: Problem details: - RUE, mildly symptomatic RLE, improved upon arrival to ED - stroke neurology following, PT/OT/Speech - MRI and TTE with bubble to be performed 10/28/24 - permissive HTN, HOLDING home Metoprolol Status: Acute (2) Aphasia: Problem details: - speech therapy following, improved 10/28/24 Status: Acute (3) Mass of left lung: Problem details: - noted on CT 09/2024 - PET scan: Intensely FDG avid L hilar mass likely represents a primary lung neoplasm, extension into L mediastinum, L pleural mets, L anterior rib 5, R iliac wing bone mets - awaiting [facility] consultation Status: Acute Plan - per above - if remains stable, possibly home tomorrow with close outpatient f/u - updated at bedside, questions answered Subjective Date Seen: 10/28/24 Interval history: Damon was admitted to the hospital last night for RUE weakness and word finding difficulty. Had woken up around 0100 with symptoms; last known well approximately 1900. Reassuring head CT and CTA, CTA neck revealed critical (>90%) stenosis at origin of L common carotid, moderate (67%) stenosis at origin of R internal carotid 2/2 calcified plaque[address] Seen [address] Dr[address] Saldana of Stroke Neurology, given ASA. MRI and TTE with bubble ordered today. LDL 55, A1C 5.3 Holding home Metoprolol, BP 170/90. Therapies (Speech, PT, OT) following. This morning, expressive aphasia has improved, able to ambulate to the bathroom with stand by assist. RUE symptoms have improved. Recent diagnosis of lung cancer (PET CT 2 weeks ago); awaiting [facility] appt for further workup. 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, no resting tremor Psych: Appropriate Const: Vital Signs, click to edit/add: Vital Signs - 24 hr 10/28/24 02:30 10/28/24 02:37 10/28/24 02:37 Temperature 97.8 F Pulse Rate Pulse Rate [Pulse Oximeter] 80 Respiratory Rate 18 16 Blood Pressure Blood Pressure [Le ft Arm] Blood Pressure [Ri ght Upper Arm] 155/83 H Pulse Oximetry 100 98 Oxygen Delivery Me thod Room Air Room Air 10/28/24 02:38 10/28/24 02:48 10/28/24 02:53 Temperature Pulse Rate Pulse Rate [Pulse Oximeter] Respiratory Rate 24 Blood Pressure 167/115 H Blood Pressure [Le ft Arm] Blood Pressure [Ri ght Upper Arm] Pulse Oximetry 99 Oxygen Delivery Me thod 10/28/24 02:53 10/28/24 02:53 10/28/24 03:00 Temperature 98 F Pulse Rate 78 Pulse Rate [Pulse Oximeter] 76 Respiratory Rate 16 13 Blood Pressure Blood Pressure [Le ft Arm] Blood Pressure [Ri ght Upper Arm] 155/83 H Pulse Oximetry 99 99 99 Oxygen Delivery Me od Room Air Room Air 10/28/24 03:02 10/28/24 03:12 10/28/24 03:15 Temperature Pulse Rate 76 78 86 Pulse Rate [Pulse Oximeter] Respiratory Rate 15 15 20 Blood Pressure 167/98 H 176/92 H Blood Pressure [Le ft Arm] Blood Pressure [Ri ght Upper Arm] Pulse Oximetry 99 99 96 Oxygen Delivery Me thod 10/28/24 03:22 10/28/24 03:30 10/28/24 03:31 Temperature Pulse Rate 74 72 Pulse Rate [Pulse Oximeter] Respiratory Rate 16 19 15 Blood Pressure 160/95 H 153/89 H Blood Pressure [Le ft Arm] Blood Pressure [Ri ght Upper Arm] Pulse Oximetry 95 95 Oxygen Delivery Me thod 10/28/24 03:42 10/28/24 03:45 10/28/24 03:52 Temperature Pulse Rate 74 70 Pulse Rate [Pulse Oximeter] Respiratory Rate 19 17 16 Blood Pressure 160/102 H 164/93 H Blood Pressure [Le ft Arm] Blood Pressure [Ri ght Upper Arm] Pulse Oximetry 94 97 Oxygen Delivery Me thod 10/28/24 04:00 10/28/24 04:02 10/28/24 04:11 Temperature Pulse Rate 74 70 72 Pulse Rate [Pulse Oximeter] Respiratory Rate 51 H 14 16 Blood Pressure 158/94 H 149/88 H Blood Pressure [Le ft Arm] Blood Pressure [Ri ght Upper Arm] Pulse Oximetry 95 96 96 Oxygen Delivery Me thod 10/28/24 04:55 10/28/24 05:00 10/28/24 05:00 Temperature 97.5 F L 97.5 F L Pulse Rate 74 Pulse Rate [Pulse Oximeter] 74 74 Respiratory Rate 16 16 Blood Pressure 181/117 H Blood Pressure [Le ft Arm] 181/117 H 181/117 H Blood Pressure [Ri ght Upper Arm] Pulse Oximetry 96 96 96 Oxygen Delivery Me thod Room Air Room Air Room Air 10/28/24 06:07 10/28/24 08:16 Temperature 97.7 F Pulse Rate Pulse Rate [Pulse Oximeter] 77 Respiratory Rate 16 16 Blood Pressure Blood Pressure [Le ft Arm] 173/90 H Blood Pressure [Ri ght Upper Arm] Pulse Oximetry 96 94 Oxygen Delivery Me thod Room Air Room Air Labs Labs: Laboratory Results - last 24 hr 10/28/24 02:35 WBC 5.74 RBC 4.18 L Hgb 13.4 L Hct 38.7 MCV 93 MCH 32 MCHC 35 RDW Coeff of Beckie 13.2 Plt Count 253 Neut % (Auto) 48.4 Lymph % (Auto) 37.6 [place] % (Auto) 10.5 Eos % (Auto) 3.0 Baso % (Auto) 0.3 Neut # (Auto) 2.78 Lymph # (Auto) 2.16 [place] # (Auto) 0.60 Eos # (Auto) 0.17 Baso # (Auto) 0.02 Abs Immat Gran (auto) 0.01 Imm/Tot Granulo (auto) 0.2 INR 0.86 L APTT 27 Sodium 129 L Potassium 4.4 Chloride 95 L Carbon Dioxide 26 Anion Gap 8 BUN 14 Creatinine 0.8 Estimated Creat Clear 67.91 Estimated GFR 99 Glucose 90 Calcium 9.3 Ethyl Alcohol 0.02
[2024-10-28] MEDS: TAMSULOSIN HCL 0.4 MG CAPSULE PO (09:49)
[2024-10-28] MEDS: METOPROLOL SUCCINATE (XL) 25 MG TAB PO (09:49)
[2024-10-28] MEDS: MULTIVITAMIN/MINERALS 1 TABLET 1 TAB PO (09:49)
[2024-10-28] MEDS: ASPIRIN EC 325 MG TABLET PO (09:49)
[2024-10-28] MEDS: SODIUM CHLORIDE 0.9 % (FLUSH) 10 ML SYRINGE 5 ML IVF ×2 (09:52→20:55)
[2024-10-28 11:06] LABS: Hemoglobin A1C* 5.3 % (0-5.6)
[2024-10-28 11:07] LABS: Cholesterol* 144 mg/dL (90-199)
[2024-10-28 11:08] LABS: HDL Cholesterol* 70 mg/dL (>=40); LDL Cholesterol Calculated 55 mg/dL (<100); Triglycerides* 93 mg/dL (40-149)
--- NOTE | 2024-10-28 22:33 | PC.NURSE ---
End of Shift: Patient pleasant and cooperative. Afebrile. Denies pain. Up with SBA. Tolerating regular diet with no nausea.
[2024-10-29 03:00] VITALS: BP 135/79; PULSE 80; RESP 16; TEMP 36.6; O2SAT 95
[2024-10-29 06:31] LABS: Basophils Absolute Auto 0.04 K/uL (0.00-0.30); Basophils Percent Auto 0.6 % (0.0-3.0); Eosinophils Absolute Auto 0.17 K/uL (0.00-0.50); Eosinophils Percent Auto 2.5 % (0.0-7.0); Hemoglobin* 14.6 gm/dL (13.5-17.5); Immature Granulocytes Abs Auto 0.01 K/uL (0.00-0.30); Immature Granulocytes Pct Auto 0.1 %; Lymphocytes Absolute Auto 1.42 K/uL (0.90-2.90); Lymphocytes Percent Auto 20.9 % (20-44); Mean Corpuscular HGB Conc 35 gm/dL (32-36); Mean Corpuscular Hemoglobin 32 pg (26-34); Mean Corpuscular Volume 92 fL (80-100); Monocytes Percent Auto 11.4 % (0.0-11.0); Neutrophils Absolute Auto 4.37 K/uL (1.7-7.0); Neutrophils Percent Auto 64.5 % (42.0-72.0); Platelet Count* 267 K/uL (140-440); RDW Coefficient of Variation % 13.4 % (11.5-15.5); Red Blood Count 4.55 m/uL (4.30-5.90); White Blood Count* 6.78 K/uL (4.50-11.00)
[2024-10-29 06:39] LABS: Slide Review Reflex No
[2024-10-29 06:44] LABS: Chloride* 101 mmol/L (96-114); Sodium* 133 mmol/L (135-149)
[2024-10-29 06:45] LABS: Potassium* 4.3 mmol/L (3.6-5.1)
[2024-10-29 06:48] LABS: Anion Gap 7 mEq/L (7-15); Blood Urea Nitrogen* 19 mg/dL (7-30); Carbon Dioxide* 25 mmol/L (20-32); Creatinine* 0.8 mg/dL (0.5-1.5); Est. Creatinine Clearance* 49.77; Estimated Glomerular Filt Rate 99 ml/min; Glucose* 101 mg/dL (60-115)
--- NOTE | 2024-10-29 07:52 | PC.NURSE ---
Patient pleasant, alert and oriented. Denied any pain. Ambulates independently in room.
[2024-10-29 09:00] VITALS: BP 159/96; PULSE 74; RESP 14; TEMP 36.3; O2SAT 94
[2024-10-29] MEDS: ENOXAPARIN 40 MG/0.4 ML INJ SUBCUT (09:02)
[2024-10-29] MEDS: MULTIVITAMIN/MINERALS 1 TABLET 1 TAB PO (09:02)
[2024-10-29] MEDS: ASPIRIN EC 325 MG TABLET PO (09:02)
[2024-10-29] MEDS: TAMSULOSIN HCL 0.4 MG CAPSULE PO (09:18)
--- NOTE | 2024-10-29 10:39 | P.DS_ITS ---
DS: Providers Provider Date Seen: 10/29/24 Date of admission: 10/28/24 10:24 Primary care physician: Kurt Lobo MD Admitting Clinician: Zach Russo MD Consults: PT, OT, Speech Attending Physician on discharge: Lianna Beltrán MD Date of Discharge: 10/29/24 DS: Diagnosis Discharge Diagnosis (1) Acute right-sided muscle weakness: Status: Acute Problem details: - RUE, mildly symptomatic RLE, improved upon arrival to ED - seen by PT/OT/Speech and Stroke Neurology - MRI brain with results below - home on Plavix and ASA per Stroke Neurology recommendations (2) Aphasia: Status: Acute Problem details: - speech therapy following, improved 10/28/24 (3) Mass of left lung: Status: Acute Problem details: - recent diagnosis, noted on CT 09/2024 - PET scan: Intensely FDG avid L hilar mass likely represents a primary lung neoplasm, extension into L mediastinum, L pleural mets, L anterior rib 5, R i liac wing bone mets - awaiting [facility] Oncology consultation (4) Hyponatremia: Status: Acute Problem details: - 129 (previous outpatient baseline 133) - 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 Recent diagnosis of lung mass + rib mets, concerning for malignancy. Awaiting Oncology appt for this. During stay: CT/CTA notable for left carotid stenosis, MRI of brain exhibited areas of restricted diffusion in cortical montemayor matter of the L temporal and parietal lobes c/w recent subacute embolic infarct. TTE reassuring. A1C 5.3, LDL 55. Allowed permissive HTN until d/c. Did well without smoking during stay, prn Nicotine patches upon discharge. Seen by therapies, no acute rehab or SNF recommended during stay. Followed by Stroke Neurology, recommendations: - plavix 300mg load - ASA 325 mg and plavix 75mg for 3 months, then plavix monotherapy - consult vascular surgery for L CCA critical stenosis - therapies - permissive hypertension BP < 180/100, then gradually lower to normotensive - LDL goal <70 - A1C <7 - TTE report pending - tobacco cessation - f/u with stroke clinic Patient appropriate for d/c home with and close PCP followup on 10/29/24. Time spent discussing smoking cessation with patient: 3 to 10 minutes Status at Discharge Functional status at discharge: independent ambulation Overall status at discharge: patient is progressing back to baseline Time Spent with Patient Time attestation: Total time spent providing and/or coordinating discharge services: Time spent: Greater than 30 minutes Specific discharge activities: Medication reconciliation, collaboration with specialty teams and ancillary staff, pt/ updates Exam Narrative: Exam Narrative: GEN: Alert and oriented, sitting comfortably in bed HEENT: EOMIs bilaterally, no scleral icterus CV: RRR, No concerning murmurs R: LCTA bilaterally without concerning wheezing Ext: wwp, no concerning edema, + clubbing bilaterally Skin: No concerning skin lesions or rashes on exposed skin Neuro: No focal deficits noted on day of discharge Psych: Appropriate Const: Vital Signs, click to edit/add: Vital Signs - 24 hr 10/28/24 15:00 10/28/24 15:00 10/28/24 15:00 Temperature 97.5 F L Pulse Rate 92 Pulse Rate [Pulse Oximeter] 83 83 Respiratory Rate 16 16 Blood Pressure [Le ft Arm] 100/62 Blood Pressure [Ri ght Arm] Pulse Oximetry 96 Oxygen Delivery Me thod Room Air 10/28/24 19:00 10/28/24 23:00 10/29/24 03:00 Temperature 97.6 F 98.2 F 97.9 F Pulse Rate Pulse Rate [Pulse Oximeter] 76 88 80 Respiratory Rate 16 18 16 Blood Pressure [Le ft Arm] 124/78 131/87 135/79 Blood Pressure [Ri ght Arm] Pulse Oximetry 96 94 95 Oxygen Delivery Me thod Room Air Room Air Room Air 10/29/24 09:00 Temperature 97.4 F L Pulse Rate Pulse Rate [Pulse Oximeter] 74 Respiratory Rate 14 Blood Pressure [Le ft Arm] Blood Pressure [Ri ght Arm] 159/96 H Pulse Oximetry 94 Oxygen Delivery Me thod Room Air DS: Data Data Completed and Pending Completed studies during hospitalization: Brain MRI 1. Scattered foci of restricted diffusion involving the cortical montemayor matter of the left temporal and parietal lobes, which can be seen with recent subacute embolic infarct. A nonspecific encephalitis or postictal changes may have a similar appearance and should be clinically excluded. 2. Mild generalized parenchymal volume loss with chronic microvascular ischemic changes. Neck CTA IMPRESSION: 1. Critical (greater than 90%) stenosis at the origin of the left common carotid artery. 2. Moderate (67%) stenosis at the origin of the right internal carotid artery by NASCET criteria. This is caused by calcified plaque with a 1.5mm residual lumen. 3. Moderate right vertebral artery origin stenosis. Labs on day of discharge: Labs from last 24 hours 10/29/24 10/28/24 10/28/24 06:00 10:31 02:35 WBC 6.78 RBC 4.55 Hgb 14.6 Hct 42.0 MCV 92 MCH 32 MCHC 35 RDW Coeff of Beckie 13.4 Plt Count 267 Neut % (Auto) 64.5 Lymph % (Auto) 20.9 Nash % (Auto) 11.4 H Eos % (Auto) 2.5 Baso % (Auto) 0.6 Neut # (Auto) 4.37 Lymph # (Auto) 1.42 Nash # (Auto) 0.80 Eos # (Auto) 0.17 Baso # (Auto) 0.04 Abs Immat Gran (auto) 0.01 Imm/Tot Granulo (auto) 0.1 Sodium 133 L Potassium 4.3 Chloride 101 Carbon Dioxide 25 Anion Gap 7 BUN 19 Creatinine 0.8 Estimated Creat Clear 49.77 Estimated GFR 99 Glucose 101 Hemoglobin A1c 5.3 Calcium 9.0 Triglycerides 93 Cholesterol 144 LDL Cholesterol, Calc 55 HDL Cholesterol 70 Lab Acknowledgement Test Added Discharge Plan Discharge Disposition: Home, Self-Care Date of Admission: 10/28/24 10:24 Attending Provider on Discharge: Lianna Beltrán Primary Care Provider: Kurt Lobo Condition: Improved Anticipated Discharge Date/Time: 10/29/24 10:03 Discharge Medications: New clopidogrel [Plavix] 75 mg tablet 75 mg PO DAILY Qty: 30 2RF nicotine 7 mg/24 hr patch 24 hour 1 patch transdermal Q24H Qty: 14 1RF Continued multivitamin Tablet 1 tab PO QAM sildenafil 100 mg tablet 100 mg PO QDAY PRN (Reason: sexual activity) Qty: 6 5RF Rx Instructions: administer 30 minutes to 4 hours before activity tamsulosin 0.4 mg capsule 0.4 mg PO QDAY Qty: 90 3RF [id number]-[id number] [id number] mg tablet 1 tab PO DAILY aspirin 325 mg tablet 325 mg PO QDAY methocarbamol 500 mg tablet 500 mg PO QID Qty: 40 3RF metoprolol succinate 25 mg tablet extended release 24 hr 25 mg PO DAILY Held celecoxib 200 mg capsule 200 mg PO BID Qty: 60 2RF Hold Instructions: Hold until f/u with PCP (may want to hold or decrease dose while on ASA and Plavix) Discharge Orders: Discharge Order (Routine); Ordered 10/29/24 Ordered By: Lianna Beltrán Patient Education: Nicotine (Absorbed through the skin), Clopidogrel (By mouth) (Plavix), How to Stop Smoking (DC), Stroke (DC) Additional Instructions: New medication: Plavix (at pharmacy), 75mg daily. You'll take this with Aspirin 325mg daily as well for the next THREE months. After three months, you'll take Plavix 75mg daily by itself. Hold Celebrex for now, talk with Dr. Lobo about restarting this. Keep up the good work off of cigarettes! If you need patches, they're at the pharmacy. Make an eye appt for vision concerns (ideally within the next 1-2 weeks). For your carotid artery stenosis, you should see Vascular Surgery at [facility] to discuss stent placement. No work until after your followup appt with Dr. Lobo. Activity Level: No strenuous activity Discharge Diet: Regular Follow Up Appointments: Kurt Lobo MD [Primary Care Provider] - 11/06/24 9:45 am ([facility] for hospital follow-up, Vascular surgery referral.) Forms: [employer] Info Instructions
--- NOTE | 2024-10-29 13:14 | PC.NURSE ---
Discharged home with his this afternoon... reports no weakness, although has some expressive aphasia with conversation. All discharge instructions were reviewed with the patient and his regarding stroke edu and nicotine cessation. Ksenia COHEN BSN
--- NOTE | 2024-10-29 16:14 | PC.NURSE ---
Patient's called about patient receiving Plavix dose prior to discharge. Spoke with nurse and patient did not receive dose. Updated provider and instructed patient to take 300 mg of Plavix now and then resume prescribed daily dose tomorrow. Voiced understanding.
== END 2024-10-29 12:19 | disposition home or self-care (01) | DRG 45 ==
LOC: ED 03:25 → MEDSURG 04:45
PROVIDERS: Family Medicine; Admitting Provider Student in an Organized Health Care Education/Training Program; Emergency Provider Family Medicine; PCP Family Medicine; Visit Provider Student in an Organized Health Care Education/Training Program
DX: I63.233 Cerebral infarction due to unspecified occlusion or stenosis of bilateral carotid arteries (principal); R47.01 Aphasia; G81.91 Hemiplegia, unspecified affecting right dominant side; E22.2 Syndrome of inappropriate secretion of antidiuretic hormone; Z79.82 Long term (current) use of aspirin; C34.02 Malignant neoplasm of left main bronchus; C78.2 Secondary malignant neoplasm of pleura; C78.1 Secondary malignant neoplasm of mediastinum; E88.A Wasting disease (syndrome) due to underlying condition; C79.51 Secondary malignant neoplasm of bone; Z68.1 Body mass index [BMI] 19.9 or less, adult; J44.9 Chronic obstructive pulmonary disease, unspecified; I10 Essential (primary) hypertension; M48.02 Spinal stenosis, cervical region; N40.0 Benign prostatic hyperplasia without lower urinary tract symptoms; F17.210 Nicotine dependence, cigarettes, uncomplicated
CPT/HCPCS: 36415; 70450; 70496; 70498; 70551; 80048; 80061; 82077; 82962; 83036; 85025; 85610; 85730; 92523; 92610; 93005; 93306; 94761; 97165; 97530; 97535; 99285; A9153; A9270; G0378; J1650; Q9967

== ENCOUNTER 2024-11-10 09:30 | Outpatient (RCR) | payer BC, SELFPAY ==
--- NOTE | 2024-11-06 15:23 | OT.OPGNE2 ---
OT Outpatient General/Neuro Eval OT Outpatient General/Neuro Eval* Start: 11/06/24 14:11 Freq: Status: Active Protocol: Document 11/06/24 14:12 CSS (Rec: 11/06/24 15:21 CSS [id number]) E-signed By Alyssa Colon OTR/L OT Outpatient Evaluation Details Type Type Eval Complexity Low Insurance Information Insurance Information Insurance Information Blue [employer] Outpatient History/Precautions Current Condition Referring Provider Dr. 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 He reports that is not his baseline. Reports went to eye doctor yesterday and reports no concerns with vision. Reports he would like to return back to driving; pt report he has driven once since CVA approx 1 block from his home and felt it was fine. Pt is R hand dominant. Pt reports no concerns with coordination or strength in R hand. Pain Assessment Pain Pain Yes Pain Comments 7/10 at rest in R hip. Objective Measures Shoulder Shoulder B shoulders WNL Elbow Elbow B elbow WNL Wrist Wrist B wrists WNL Hand Hand B digits WNL Coordination Assessment Coordination Test Side Coordination Test Side Left Side,Right Side Left Side 9-Hole Test 23.96 seconds Right Side 9-Hole Test 24.56 Hand Pinch/Urgent Care Physician Assistant Strength Hand Pinch/Urgent Care Physician Assistant Strength Hand Pinch/Urgent Care Physician Assistant Strength Left Hand,Right Hand Left Hand Urgent Care Physician Assistant Strength Position 1 in Elbow 60 Flexion (lbs) Lateral Pinch Strength (lbs) 18 [place] Pinch (lbs) 20 Right Hand Urgent Care Physician Assistant Strength Position 1 in Elbow 67 Flexion (lbs) Lateral Pinch Strength (lbs) 16 [place] Pinch (lbs) 16 Sensation Assessment Sensation Assessment Side Sensation Assessment Side Right Side Right Side Comment Denies N/T in BUE or BLE Cognitive Assessments Performed Cognitive Assessments Performed [place] Cognitive Assessment (MOCA) Results Administered MOCA 8.2. Pt scored: 28/30 placing him in normal cognitive functioning category. Assessment Assessment Assessment Pt is 64 year old male who is referred to OT for cognitive concerns, specifically to evaluate driving skills. Driving assessment was not administered today as it can only be taken 1x every 6 months and OT wanted to work on cog skills if needed prior, however pt scores within normal in cog screen. 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 Recommend ongoing skilled OT to assess pt with driving skills in order to return back to driving. Occupational Therapy Treatment Plan - OP Potential Rehabilitation Potential Excellent Set Goals Goals Set with Patient Yes Goals Goals Goals to be met by 01/29/25: 1) Pt will participate in OP driving assessment in order to help make appropriate and safe recommendations for driving. Treatment Plan Treatment Plan Evaluation,Self-Care/Home Management Expected Frequency 1x Week Expected Duration 12 weeks Certification Certification Statement I Certify That: Therapy Services Provided, Therapy Plan Established, Therapy Plan Reviewed Certification Information Clinic ID # [id number] Initial Certification Date 11/06/24 Recertification Due Date 01/29/25 Provider Signature Required Yes Provider Signature Shows Agreement With POC & Medical Necessity Physician NPI Number Write NPI# Here Physician Comment/Change Comment or Changes Physician Signature & Date Requested Please Sign/Date Here
== END 2025-03-10 23:59 | disposition home or self-care (01) ==
PROVIDERS: PCP Family Medicine; Visit Provider Family Medicine
DX: I67.9 Cerebrovascular disease, unspecified (principal); Z91.89 Other specified personal risk factors, not elsewhere classified; Z51.89 Encounter for other specified aftercare
CPT/HCPCS: 97165; 97535

== ENCOUNTER 2025-02-10 17:44 | Outpatient (CLI) | payer BC, SELFPAY ==
--- OUTSIDE RECORDS SUMMARY | 2025-02-12 00:15 | XMS_ITS | Clinical Summary ---
Author Organization [facility] Address [address] [place] [id number] Care Team Providers Care Supervisor Ride Assembly Name Role Phone Kurt Lobo MD Primary Care Provider [phone] Social History Tobacco Use Types Packs/Day Years Used Date Smoking Tobacco: Never Assessed Sex and Gender Information Value Date Recorded Sex Assigned at Not on file Legal Sex Male 8:25 AM ULTRASONIC [employer] Gender Identity Not on file Sexual Orientation Not on file Plan of Treatment Scheduled Procedures Name Priority Associated Diagnoses Date/Ti me ENDOBRONCHIAL ULTRASOUND FIN E NEEDLE ASPIRATION Lung mass Health Maintenance Due Date Last Done Comments Tdap 1972 Depression screening for age 12+ 1973 HIV for age 15-65 1976 BMI (ht and wt on same day) for age 18+ 1979 Hepatitis C screening for ag e 18-79 1979 Tetanus booster 1981 Colonoscopy through age 75 2006 Lipids for age 45-75 2006 Pneumococcal series for age 50+ (1 of 1 - PCV) 2011 Zoster (shingles) series for age 50+ (1 of 2) 2011 RSV vaccine for adults or (1 - Risk 60-74 years 1-dose series) 2021 COVID-19 vaccine series ( season) 2024 Influenza Vaccine (Season Ended) 2025 Hepatitis B series for 19+ Aged Out N o longer eligible based on patient's age to complete this topic Insurance [address] [place] [id number] [facility] Care Teams Supervisor Ride Assembly Relationship Specialty Start Date End Date Kurt Lobo MD [id number] [place] [address] PCP - General Family Practice 11/13/24
== END 2025-02-10 17:45 | disposition home or self-care (01) ==
LOC: AMB 02-11 14:16
PROVIDERS: PCP Family Medicine; Visit Provider Emergency Medicine
DX: R50.9 Fever, unspecified (principal); R53.1 Weakness
CPT/HCPCS: A0425; A0427